=== PATIENT | female | born 1955 | race Two or more races ===

== ENCOUNTER 2022-05-15 20:13 | Emergency (ER) | payer OTHER ==
[~2022-05-15] VITALS: Ht 162.6 cm; Wt 65.8 kg
--- NOTE | 2022-05-15 20:13 | NUR ---
A CASE OF 66YO FEMALE PATIENT. 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 PATIENT HAS WEAKNESS ON THE LEFT SIDE OF THE BODY. CAME WITH PERIPHERAL LINE ON LEFT HAND G20. PER PATIENT IT STARTED LIKE THERE IS A PRESSURE IN HER CHEST AND SHE FELT THE TINGLING SENSATION. ATTACHED TO MONITOR. VITALS CHECKED.
--- NOTE | 2022-05-15 20:18 | NUR ---
GLUCOSE LEVEL OF 111mg/dl MD RASMUSSEN. AT BEDSIDE. IV CANNULA G20 INSERTED ON RIGHT AC. BLOOD DRAWN AND SENT TO LAB.
--- NOTE | 2022-05-15 20:19 | NUR ---
CODE STROKE CALLED
--- NOTE | 2022-05-15 20:21 | NUR ---
NURSING FOUNDRY TECHNICIAN CAME WITH NEUROTELE MACHINE
--- NOTE | 2022-05-15 20:22 | NUR ---
CALLED [facility] [phone] DR. KOVACS
--- NOTE | 2022-05-15 20:22 | NUR ---
PT TO CT VIA ACLS PROTOCALS
--- NOTE | 2022-05-15 20:25 | NUR ---
CT SCAN WITHOUT CONTRAST OF HEAD DONE. CXR DONE AT RADIOLOGY DEPT
--- NOTE | 2022-05-15 20:32 | NUR ---
Tru nolan in [facility] - 05/15/22 at 2214 by DARIEN DOC DONE WITH DR KOVACS; [id number]
--- NOTE | 2022-05-15 20:32 | NUR ---
TELENEURO DONE WITH DR KOVACS; RECOMMENDING TO START PATIENT WITH TPA DRIP. DR OQUENDO MADE AWARE
[2022-05-15 20:33] LABS: BASOPHILS % (AUTO) 0.6 % (0.0-2.0); EOSINOPHILS % (AUTO) 1.7 % (0.0-6.0); HEMATOCRIT 41 % (33-45); HEMOGLOBIN 13.9 g/dL (11.5-14.8); LYMPHOCYTES # (AUTO) 3.5 K/uL (0.8-4.8); LYMPHOCYTES % (AUTO) 41.4 % (20.0-44.0); MEAN CORPUSCULAR HGB CONC 34 g/dl (31.0-36.0); MEAN CORPUSCULAR VOLUME 89 fL (82-100); MONOCYTES # (AUTO) 0.8 K/uL (0.1-1.30); MONOCYTES % (AUTO) 9.9 % (2.0-12.0); NEUTROPHILS # (AUTO) 3.9 K/uL (1.8-8.9); NEUTROPHILS % (AUTO) 46.4 % (43.0-81.0); PLATELET COUNT (AUTO) 222 K/uL (150-450); RED BLOOD CELL COUNT(AUTO) 4.65 MIL/uL (4.0-5.2); WHITE BLOOD COUNT (AUTO) 8.4 K/uL (4.3-11.0)
--- NOTE | 2022-05-15 20:35 | NUR ---
DR. KOVACS SPEAKING WITH DR. OQUENDO.
--- NOTE | 2022-05-15 20:38 | NUR ---
EKG DONE AT BEDSIDE
--- NOTE | 2022-05-15 20:39 | NUR ---
[phone] [facility] [place]QUE[facility]
--- NOTE | 2022-05-15 20:41 | NUR ---
FAXED FACE SHEET TO [facility] [phone]
[2022-05-15] MEDS ORDERED: IOHEXOL-350 100 ML VIAL IV ONE (20:42)
--- NOTE | 2022-05-15 20:53 | NUR ---
CT ANGIO OF HEAD AND NECK DONE
--- NOTE | 2022-05-15 20:54 | NUR ---
CALLED [facility] [phone] SPOKE WITH ART. THEY HAVE FACE SHEET AND MADE AWARE THAT TPA MAY BE GIVEN.
--- NOTE | 2022-05-15 20:56 | NUR ---
BACK FROM CTA
[2022-05-15] MEDS ORDERED: WATER FOR INJECTION STERILE IV ONE (21:00)
[2022-05-15] MEDS ORDERED: ALTEPLASE IV ONE (21:00)
[2022-05-15] MEDS ORDERED: ALTEPLASE BOLUS DOSE IV ONE (21:00)
--- NOTE | 2022-05-15 21:04 | NUR ---
TPA 6MG BOLUS GIVEN WITH VITALS OF HR 66,RR 18, SATS 97, BP 178/114mmHg
[2022-05-15 21:10] LABS: CALCIUM, SERUM 9.5 mg/dL (8.5-10.1); CARBON DIOXIDE 24 mmol/L (21-32); CHLORIDE 106 mmol/L (98-107); CREATININE 0.9 mg/dL (0.6-1.3); GLUCOSE 121 mg/dL (74-106); POTASSIUM 3.4 mmol/L (3.5-5.1); SODIUM SERUM 142 mmol/L (136-145); UREA NITROGEN, BLOOD 20 mg/dL (7-18)
--- NOTE | 2022-05-15 21:10 | NUR ---
TPA INFUSION OF 52MG/HR STARTED. VITALS TO RECHECK Q15 MINS. PATIENT IS AAOX4, ABLE TO MAKE NEEDS KNOWN
--- NOTE | 2022-05-15 21:30 | NUR ---
PATIENT PASS THE SWALLOWING EVAL. THERE IS A SLIGHT WATER DRIP AT THE SIDE OF HER MOUTH WHEN SHE TRIED THE 60ML. NO CHOKING, NO WATER RETENTION ON HER MOUTH OR DIFFICULTY SWALLOWING
--- NOTE | 2022-05-15 21:34 | NUR ---
[phone] CCT ACCEPTTING MD WILL BE DR. GUSTABO RAHMAN [phone]
[2022-05-15 21:41] LABS: BILIRUBIN,URINE NEGATIVE (NEGATIVE); COLOR,URINE YELLOW (YELLOW); LEUKOCYTE ESTERASE ,URINE NEGATIVE (NEGATIVE); NITRITE, URINE NEGATIVE (NEGATIVE); PROTEIN,URINE NEGATIVE (NEGATIVE); UGLUCOSE NEGATIVE (NEGATIVE); UROBILINOGEN,URINE 0.2 EU/dL (0.2)
--- NOTE | 2022-05-15 21:44 | NUR ---
CCT AT BED SIDE TO LEVEL VIAL INSPECTOR THE PT
--- NOTE | 2022-05-15 21:50 | NUR ---
PATIENT WAS MOVED TO [facility] ACCOMPANIED BY [facility] ART.
[2022-05-15 21:52] LABS: BACTERIA,URINE Few /HPF (None Seen); RBC,URINE 0-2 /HPF (0-2); SQUAMOUS EPITHELIAL CELL,UR Few /HPF (None Seen); WBC,URINE 0-2 /HPF (0-3)
--- NOTE | 2022-05-15 22:12 | NUR ---
REPORT GIVEN TO TAD HARP OF [facility].
[2022-05-15 22:21] VITALS: BP 111/55
[2022-05-16 00:44] LABS: ALCOHOL, BLOOD < 3 mg/dL (0-0); SERUM AMMONIA 72 umol/L (11-32)
[2022-05-16 01:06] LABS: ALBUMIN 3.5 g/dL (3.4-5.0); TOTAL PROTEIN, SERUM 7.5 g/dL (6.4-8.2)
[2022-05-16 03:00] LABS: BILIRUBIN,TOTAL 0.2 mg/dL (0.2-1.0)
== END 2022-05-15 22:15 | disposition short-term general hospital (02) ==
LOC: ER 20:24
DX: I63.9 Cerebral infarction, unspecified (principal); R47.81 Slurred speech; R29.810 Facial weakness; G81.94 Hemiplegia, unspecified affecting left nondominant side; R27.0 Ataxia, unspecified; R29.706 NIHSS score 6; I49.3 Ventricular premature depolarization; I10 Essential (primary) hypertension; Z20.822 Contact with and (suspected) exposure to COVID-19; E87.6 Hypokalemia
CPT/HCPCS: 99291; 96374; 93005; 71045; 70450; 70498; 70496; 82140; 85025; 80048; 80076; 81001; 36415; 84484; 85730; 82962; 87426; 80320; 80307; J2997; J7050; Q9967; C9803; G0480

== ENCOUNTER 2022-05-20 11:49 | Emergency (ER) | payer OTHER ==
[~2022-05-20] VITALS: Ht 162.6 cm; Wt 60.8 kg
--- NOTE | 2022-05-20 11:54 | NUR ---
BIB URGENT CARE PERSON, LEFT PATIENT IN WAITING ROOM. ADMITTING PERSONEL STATED "PER REPORT SHE APPEARED CONFUSED AND DOESN'T KNOW WHERE SHE IS". ASSESSED PATIENT IN TRIAGE, PATIENT AAOx4. DOESN'T APPEAR CONFUSED "I JUST LOST THE PAPER, I DON'T KNOW THE DOCTOR'S NAME FOR MY APPOINTMENT". VSS. TO ER BED 6. HOOKED TO MONITOR. WILL CONTINUE TO MONITOR ACCORDINGLY
--- NOTE | 2022-05-20 12:01 | NUR ---
SEEN BY DR LARSEN FOR EVAL
--- NOTE | 2022-05-20 12:16 | NUR ---
PATIENT'S FAMILY IN [place]. PATIENT STATES "THEY AREN'T GOING TO HELP". ASKED ABOUT WHERE DOES SHE LIVE AND WHO DOES SHE LIVE WITH, STATES SHE LIVES WITH A FRIEND AND THAT "FRIEND DOESN'T WANT TO GET INVOLVED" PATIENT DOES NOT WANT TO GIVE ADDRESS AND PHONE NUMBER. MADE DR LARSEN AWARE.
--- NOTE | 2022-05-20 12:28 | NUR ---
PATIENT SIGNED AUTH FOR USE OR DISCLOSURE OF HEALTH INFORMATION FOR [facility]
--- NOTE | 2022-05-20 12:32 | NUR ---
CALLED [facility] [phone] FAXED RELEASE TO [phone]
[2022-05-20 13:26] VITALS: BP 169/92
--- NOTE | 2022-05-20 13:26 | NUR ---
Patient discharged to home in stable condition. Written and verbal after care instructions given. Patient verbalizes understanding of instruction.
== END 2022-05-20 13:25 | disposition home or self-care (01) ==
LOC: ER 11:55
DX: I63.9 Cerebral infarction, unspecified (principal); I10 Essential (primary) hypertension